=== PATIENT | male | born 2000 ===

== ENCOUNTER 2019-08-31 15:11 | Emergency (ER) | payer OTHER ==
[2019-08-31 15:30] VITALS: BP 121/73
--- NOTE | 2019-08-31 16:15 | UC ---
Respiratory Complaint HPI - HPI Summary HPI Summary: cough for 1 moth, right side rib pain now with cough - History of Current Complaint Chief Complaint: UCGeneralIllness Stated Complaint: COUGH Time Seen by Provider: 08/31/19 15:48 Hx Obtained From: Patient Onset/Duration: Gradual Onset, Lasting Weeks - 4, Still Present Timing: Constant Pain Intensity: 4 Pain Scale Used: 0-10 Numeric Character: Cough: Nonproductive Aggravating Factors: Nothing Alleviating Factors: Nothing Associated Signs And Symptoms: Positive: Pleuritic Chest Pain, URI - Allergies/Home Medications Allergies/Adverse Reactions: Allergies Allergy/AdvReac Type Severity Reaction Status Date / Time No Known Allergies Allergy Verified 08/31/19 15:30 PMH/Surg Hx/FS Hx/Imm Hx Previously Healthy: Yes - Surgical History Surgical History: Yes Surgery Procedure, Year, and Place: addenoids age 6 - Family History Known Family History: Positive: None - Social History Occupation: Student Lives: With Family Alcohol Use: Weekly Substance Use Type: None Smoking Status (MU): Former Smoker Type: eCigarettes Review of Systems All Other Systems Reviewed And Are Negative: Yes Constitutional: Positive: Negative Skin: Positive: Negative Eyes: Positive: Negative Respiratory: Positive: Cough Cardiovascular: Positive: Chest Pain - right rib pain Gastrointestinal: Positive: Negative Genitourinary: Positive: Negative Motor: Positive: Negative Neurovascular: Positive: Negative Musculoskeletal: Positive: Negative Neurological: Positive: Negative Psychological: Positive: Negative Is Patient Immunocompromised?: No Physical Exam Triage Information Reviewed: Yes Appearance: Well-Appearing, No Pain Distress, Well-Nourished Vital Signs: Initial Vital Signs Temp 98.1 F 08/31/19 15:27 Pulse 60 08/31/19 15:27 Resp 14 08/31/19 15:27 BP 121/73 08/31/19 15:27 Pulse Ox 100 08/31/19 15:27 Vital Signs Reviewed: Yes Eye Exam: Normal Eyes: Positive: Conjunctiva Clear ENT Exam: Normal ENT: Positive: Normal ENT inspection, Hearing grossly normal. Negative: Trismus , Muffled voice, Hoarse voice Dental Exam: Normal Neck exam: Normal Neck: Positive: Supple, Nontender Respiratory Exam: Normal Respiratory: Positive: Chest non-tender, Lungs clear, Normal breath sounds, No respiratory distress, No accessory muscle use Cardiovascular Exam: Normal Cardiovascular: Positive: RRR, No Murmur, Pulses Normal, Brisk Capillary Refill Musculoskeletal Exam: Normal Musculoskeletal: Positive: Strength Intact, ROM Intact, No Edema Neurological Exam: Normal Neurological: Positive: Alert, Muscle Tone Normal Psychological Exam: Normal Skin Exam: Normal Respiratory Course/Dx - Course Course Of Treatment: increase fluids, tylenol, ibuprofen for pain, tessalon for cough zithromax follow with pcp or [facility] prn - Differential Dx/Diagnosis Provider Diagnosis: Cough, Electronic cigarette use Discharge ED - Sign-Out/Discharge Documenting (check all that apply): Patient Departure All imaging exams completed and their final reports reviewed: No Studies - Discharge Plan Condition: Stable Disposition: HOME Prescriptions: Azithromycin TAB* [Zithromax TAB (Z-MARGIE) 250 mg #6 tabs] 2 tab PO .TODAY, THEN 1 DAILY #1 margie Benzonatate CAP* [Tessalon 100 MG CAP*] 1 - 2 cap PO TID PRN #40 cap PRN Reason: Cough Patient Education Materials: Acute Cough (ED) Referrals: [facility] [Outside] - If Needed - Billing Disposition and Condition Condition: STABLE Disposition: Home
--- NOTE | 2019-09-01 09:42 | UC ---
- Progress Note Progress Note: Patient Name: AMERICA GARRIDO Medical Record#: [id number] Ordering Physician: Lianna Benitez NP Acct.#: [id number] : 2000 Age: 19 Sex: M Location: [facility] Exam Date: 08/31/19 1556 ADM Status: REG ER Order Information: CHEST PA & LAT 2 VWS Accession Number: [id number] CPT: 07691 INDICATION: Chest pain. Cough COMPARISON: There are no relevant prior studies available for comparison. TECHNIQUE: Dual-energy PA and lateral views of the chest were obtained. FINDINGS: The lungs are clear. There is no pleural effusion. The cardiomediastinal silhouette is within normal limits. The upper abdominal contents are normal. Osseous structures are unremarkable. IMPRESSION: No acute cardiopulmonary process by radiograph. <Electronically signed by Mustapha Elliott MD in OV> 08/31/191624 Dictated By: Mustapha Elliott MD Dictated Date/Time: 08/31/191623 Transcribed Date/Time: 08/31/191623 Copy to: CC:Lianna Benitez NP; No Primary Care Phys,NOPCP ; Devon Martinez MD Imaging - [facility] [address] [address] ph ([phone]) ph ([phone]) ph ([phone]) This report is only to be considered final once signed by the Provider(s) as displayed in the "<Electronically Signed by >" field (s). Absence of a signature indicates the report is in a draft status and still needs to be finalized. In the event this document was created by someone other than the signing Provider, the individual initiating the document will be listed in the "Entered by:" or "Dictated by:" flores. 1 of 1 Course/Dx - Diagnoses Provider Diagnoses: Cough Discharge ED - Sign-Out/Discharge Documenting (check all that apply): Post-Discharge Follow Up All imaging exams completed and their final reports reviewed: Yes - Discharge Plan Condition: Stable Disposition: HOME Prescriptions: Azithromycin TAB* [Zithromax TAB (Z-MARGIE) 250 mg #6 tabs] 2 tab PO .TODAY, THEN 1 DAILY #1 margie Benzonatate CAP* [Tessalon 100 MG CAP*] 1 - 2 cap PO TID PRN #40 cap PRN Reason: Cough Patient Education Materials: Acute Cough (ED) Referrals: [facility] [Outside] - If Needed - Billing Disposition and Condition Condition: STABLE Disposition: Home
== END 2019-08-31 16:40 | disposition home or self-care (01) ==
LOC: UCEAST 15:11
DX: R05 Cough (principal); R07.81 Pleurodynia; F17.290 Nicotine dependence, other tobacco product, uncomplicated
CPT/HCPCS: 71046; 99202; G0463